=== PATIENT | female | born 1955 | race Asian ===

== ENCOUNTER 2017-09-28 09:12 | Emergency (ER) | payer OTHER ==
[~2017-09-28] VITALS: Ht 157.5 cm; Wt 66.8 kg
[2017-09-28 09:21] VITALS: BP 157/94
[2017-09-28] MEDS ORDERED: DIPH25 PO (09:26)
[2017-09-28] MEDS ORDERED: DiphenhydrAMINE/ZINC ACET 30 GM CREAM TP ONE (10:15)
== END 2017-09-28 11:02 | disposition home or self-care (01) ==
LOC: EMS 09:15
DX: L50.9 Urticaria, unspecified (principal); I10 Essential (primary) hypertension; Z79.899 Other long term (current) drug therapy; W57.XXXA Bitten or stung by nonvenomous insect and other nonvenomous arthropods, initial encounter; Y93.89 Activity, other specified; Y92.89 Other specified places as the place of occurrence of the external cause; Y99.8 Other external cause status
CPT/HCPCS: 99283